=== PATIENT | male | born 1950 | race Caucasian/White ===

== ENCOUNTER 2018-10-15 22:41 | Emergency (ER) | payer MEDICARE ==
[~2018-10-15] VITALS: Ht 182.9 cm; Wt 83.5 kg
[~2018-10-15 22:41] MED LIST: ATENOLOL25 MG PO; ATORVASTATIN CA10 MG PO; BRILINTA90 MG PO; NORCO 7.5-3251 EACH PO; OMEPRAZOLE20 M1 PO
--- OUTSIDE RECORDS SUMMARY | 2018-10-15 22:44 | XMS REPORT ---
Author Author Vanessa Martinez Organization e[employer] Address Unknown Phone Unavailable Care Team Providers Care Thermal Cutter Hand Name Role Phone Vanessa Martinez CP Unavailable Allergies, Adverse Reactions, Alerts Substance Reaction Event Type Morphine Info Not Available Drug Allergy Problems Problem Type Condition Code Onset Dates Condition Status Assessment HTN (hypertension) I10 Active Assessment Angina at rest I20.8 Active Assessment Hypercholesteremia E78.0 Active Problem Angina at rest I20.8 Active Problem HTN (hypertension) I10 Active Problem Chronic GERD K21.9 Active Assessment CAD (coronary artery disease) I25.10 Active Assessment Post PTCA Z98.61 Active Problem Hypercholesteremia E78.0 Active Problem CAD (coronary artery disease) I25.10 Active Assessment Bradycardia R00.1 Active Assessment Chronic GERD K21.9 Active Assessment Other symptoms involving cardiovascular system R09.89 Active Medications Medication Code System Code Instructions Start Date End Date Status Dosage Atenolol ND 38654871699 25 MG Orally BID Active 1 tablet Atorvastatin Calcium ND 70140702479 20 MG Orally Once a day Active 1 tablet Brilinta ND 42686074801 90 MG Orally Twice a day Active 1 tablet Aspirin ND 90841597863 81 MG Orally Once a day Active 1 tablet Pantoprazole Sodium [facility] 55193887405 40 MG Orally Once a day Active 1 tablet Nitroglycerin ND 61623110504 0.4 MG Sublingual as needed May 13, 2016 Active 1 tablet 5 mins. apart, max 3, then call 911 Vital Signs Date/Time: January 12, 2018 BMI 24.27 Index Weight 179 lbs Height 6'0 in Cardiac Monitoring Heart Rate 60 /min Blood Pressure Diastolic 84 mm Hg Blood Pressure Systolic 126 mm Hg Results No Known Results Summary Purpose eClinicalWorks Submission
--- OUTSIDE RECORDS SUMMARY | 2018-10-15 22:44 | XMS REPORT | Continuity of Care Document ---
Author [facility] Interface Address Unknown Phone Unavailable Problems Problem Status Onset Date Classification Date Reported Comments Source CAD Active Diagnosis 08/04/2018 [facility] Angina at rest Active Diagnosis 08/04/2018 [facility] Chronic GERD Active Problem 08/04/2018 [facility] Hypercholesteremia Active Diagnosis 08/04/2018 [facility] HTN Active Diagnosis 08/04/2018 [facility] Other symptoms involving cardiovascular system Active Diagnosis 08/04/2018 [facility] Post PTCA Active Diagnosis 08/04/2018 [facility] Bradycardia Active Diagnosis 08/04/2018 [facility] Medications Medication Details Route Status Patient Instructions Ordering Provider Order Date Source Nitroglycerin 1 tablet 5 mins. apart, max 3, then call 911 Sublingual Active 0.4 MG Sublingual as needed Michelle 05/13/2016 [facility] Nitroglycerin 1 tablet 5 mins. apart, max 3, then call 911 Sublingual Active 0.4 MG Sublingual as needed Michelle 05/13/2016 [facility] Atenolol 1 tablet Orally Active 25 MG Orally BID Michelle [facility] Brilinta 1 tablet Orally Active 90 MG Orally Twice a day Michelle [facility] Atorvastatin Calcium 1 tablet Orally Active 20 MG Orally Once a day Michelle [facility] Pantoprazole Sodium 1 tablet Orally Active 40 MG Orally Once a day Michelle [facility] Aspirin 1 tablet Orally Active 81 MG Orally Once a day Michelle [facility] Livalo 1 tablet Orally Active 2 MG Orally Once a day Michelle [facility] Brilinta 1 tablet Orally Active 90 MG Orally Twice a day Michelle [facility] Atenolol 1 tablet Orally Active 25 MG Orally Once a day Michelle [facility] Atorvastatin Calcium 1 tablet Orally Active 20 MG Orally Once a day Michelle [facility] Aspirin 1 tablet Orally Active 81 MG Orally Once a day Michelle [facility] Pantoprazole Sodium 1 tablet Orally Active 40 MG Orally every other day Michelle [facility] Atorvastatin Calcium 1 tablet Orally Active 20 MG Orally Once a day Michelle [facility] Allergies, Adverse Reactions, Alerts Substance Category Reaction Severity Reaction type Status Date Reported Comments Source N.K.D.A. Adverse Reaction Info Not Available Adverse Reaction Active 04/14/2017 [facility] Morphine Adverse Reaction Info Not Available Adverse Reaction Active 08/02/2018 [facility] Immunizations Immunization Date Given Site Status Last Updated Comments Source Results Order Name Results Value Reference Range Date Interpretation Comments Source Vital Signs Vital Sign Value Date Comments Source Weight 171 08/02/2018 [facility] Heart Rate 60 08/02/2018 [facility] Diastolic (mm Hg) 60 08/02/2018 [facility] Systolic (mm Hg) 110 08/02/2018 [facility] Weight 179 01/12/2018 [facility] Heart Rate 60 01/12/2018 [facility] Diastolic (mm Hg) 84 01/12/2018 [facility] Systolic (mm Hg) 126 01/12/2018 [facility] Weight 180 07/14/2017 [facility] Heart Rate 50 07/14/2017 [facility] Diastolic (mm Hg) 68 07/14/2017 [facility] Systolic (mm Hg) 128 07/14/2017 [facility] Weight 178 04/14/2017 [facility] Heart Rate 50 04/14/2017 [facility] Diastolic (mm Hg) 52 04/14/2017 [facility] Systolic (mm Hg) 138 04/14/2017 [facility] Weight 183 11/13/2016 [facility] Heart Rate 60 11/13/2016 [facility] Diastolic (mm Hg) 62 11/13/2016 [facility] Systolic (mm Hg) 128 11/13/2016 [facility] Weight 184 05/13/2016 [facility] Heart Rate 60 05/13/2016 [facility] Diastolic (mm Hg) 80 05/13/2016 [facility] Systolic (mm Hg) 122 05/13/2016 [facility] Weight 182.2 04/15/2016 [facility] Heart Rate 56 04/15/2016 [facility] Diastolic (mm Hg) 70 04/15/2016 [facility] Systolic (mm Hg) 130 04/15/2016 [facility] Encounters Location Location Details Encounter Type Encounter Number Reason For Visit Attending Provider ADM Date DC Date Status Source Michelle SOLANO NP [id number] 04/15/2016 04/15/2016 [facility] Michelle SOLANO NP [id number] 04/15/2016 04/15/2016 [facility] Michelle SOLANO NP [id number] 04/15/2016 04/15/2016 [facility] Michelle SOLANO NP [id number] 04/15/2016 04/15/2016 [facility] Michelle SOLANO LINING PRINTER [id number] 04/15/2016 04/15/2016 [facility] Michelle SOLANO NP [id number] 04/15/2016 04/15/2016 [facility] Michelle FUENTES [id number] 04/24/2016 04/24/2016 [facility] Michelle NEELYT [id number] 04/24/2016 04/24/2016 [facility] Michelle FUENTES [id number] 04/24/2016 04/24/2016 [facility] Michelle FUENTES [id number] 04/24/2016 04/24/2016 [facility] Michelle NEELYT [id number] 04/24/2016 04/24/2016 [facility] Michelle SOLANO ECHO CD [id number] 05/02/2016 05/02/2016 [facility] Michelle SOLANO ECHO CD [id number] 05/02/2016 05/02/2016 [facility] [place] SOLANO ECHO CD [id number] 05/02/2016 05/02/2016 [facility] Michelle SOLANO ECHO CD [id number] 05/02/2016 05/02/2016 [facility] [place] SOLANO ECHO / CD [id number] 05/13/2016 05/13/2016 [facility] Michelle SOLANO ECHO / CD [id number] 05/13/2016 05/13/2016 [facility] Michelle SOLANO ECHO / CD [id number] 05/13/2016 05/13/2016 [facility] Michelle SOLANO RF brilinta [id number] 09/12/2016 09/12/2016 [facility] Michelle SOLANO RF brilinta [id number] 09/12/2016 09/12/2016 [facility] Michelle SOLANO 6 mo f/u [id number] 11/13/2016 11/13/2016 [facility] Procedures Procedure Code Date Perfomer Comments Source
--- OUTSIDE RECORDS SUMMARY | 2018-10-15 22:44 | XMS REPORT ---
Author Author Vanessa Martinez Organization [employer] Address Unknown Phone Unavailable Care Team Providers Care Regional Extension Service Specialist Name Role Phone Vanessa Martinez CP Unavailable Allergies No Known Allergies Problems Problem Type Condition Code Onset Dates Condition Status Assessment Other symptoms involving cardiovascular system R09.89 Active Assessment Hypercholesteremia E78.0 Active Assessment HTN (hypertension) I10 Active Problem Angina at rest I20.8 Active Problem Hypercholesteremia E78.0 Active Problem CAD (coronary artery disease) I25.10 Active Assessment Post PTCA Z98.61 Active Assessment Angina at rest I20.8 Active Problem HTN (hypertension) I10 Active Assessment CAD (coronary artery disease) I25.10 Active Medications No Known Medications Results No Known Results Summary Purpose eClinicalWorks Submission
--- OUTSIDE RECORDS SUMMARY | 2018-10-15 22:44 | XMS REPORT ---
Author Author Vanessa Martinez Organization [employer] Address Unknown Phone Unavailable Care Team Providers Care Warehousing Technician Name Role Phone Vanessa Martinez CP Unavailable Allergies, Adverse Reactions, Alerts Substance Reaction Event Type Morphine Info Not Available Drug Allergy Problems Problem Type Condition Code Onset Dates Condition Status Assessment HTN (hypertension) I10 Active Assessment Angina at rest I20.8 Active Assessment Hypercholesteremia E78.0 Active Problem CAD (coronary artery disease) I25.10 Active Problem Angina at rest I20.8 Active Problem Chronic GERD K21.9 Active Assessment CAD (coronary artery disease) I25.10 Active Assessment Post PTCA Z98.61 Active Problem Hypercholesteremia E78.0 Active Problem HTN (hypertension) I10 Active Assessment Bradycardia R00.1 Active Assessment Chronic GERD K21.9 Active Assessment Other symptoms involving cardiovascular system R09.89 Active Medications Medication Code System Code Instructions Start Date End Date Status Dosage Atorvastatin Calcium [facility] [address]-60 20 MG Orally Once a day Active 1 tablet Nitroglycerin [facility] [address]-38 0.4 MG Sublingual as needed May 13, 2016 Active 1 tablet 5 mins. apart, max 3, then call 911 Pantoprazole Sodium [facility] [address]-00 40 MG Orally Once a day Active 1 tablet Atenolol [facility] [address]-42 25 MG Orally BID Active 1 tablet Aspirin [facility] [address]-67 81 MG Orally Once a day Active 1 tablet Brilinta [facility] [address]-79 90 MG Orally Twice a day Active 1 tablet Vital Signs Date/Time: Jul 14, 2017 BMI 24.41 Index Weight 180 lbs Height 6'0 in Cardiac Monitoring Heart Rate 50 /min Blood Pressure Diastolic 68 mm Hg Blood Pressure Systolic 128 mm Hg Results No Known Results Summary Purpose eClinicalWorks Submission
--- OUTSIDE RECORDS SUMMARY | 2018-10-15 22:44 | XMS REPORT ---
Author Author Vanessa Martinez Organization [employer] Address Unknown Phone Unavailable Care Team Providers Care Recreation Adviser Name Role Phone Vanessa Martinez CP Unavailable Allergies No Known Allergies Problems Problem Type Condition Code Onset Dates Condition Status Problem Angina at rest I20.8 Active Problem Hypercholesteremia E78.0 Active Problem CAD (coronary artery disease) I25.10 Active Problem HTN (hypertension) I10 Active Medications Medication Code System Code Instructions Start Date End Date Status Dosage Atenolol [facility] [address]-49 25 MG Orally BID Active 1 tablet Results No Known Results Summary Purpose eClinicalWorks Submission
--- OUTSIDE RECORDS SUMMARY | 2018-10-15 22:44 | XMS REPORT ---
Author Author Vanessa Martinez Organization [employer] Address Unknown Phone Unavailable Care Team Providers Care Customer Relationship Specialist Name Role Phone Vanessa Martinez CP Unavailable Allergies No Known Allergies Problems Problem Type Condition Code Onset Dates Condition Status Problem CAD (coronary artery disease) I25.10 Active Problem Angina at rest I20.8 Active Problem Chronic GERD K21.9 Active Problem Hypercholesteremia E78.0 Active Problem HTN (hypertension) I10 Active Medications No Known Medications Results No Known Results Summary Purpose eClinicalWorks Submission
--- OUTSIDE RECORDS SUMMARY | 2018-10-15 22:44 | XMS REPORT ---
Author Author Vanessa Martinez Organization [employer] Address Unknown Phone Unavailable Care Team Providers Care Clip On Sunglasses Assembler Name Role Phone Vanessa Martinez CP Unavailable Allergies No Known Allergies Problems Problem Type Condition Code Onset Dates Condition Status Problem CAD (coronary artery disease) I25.10 Active Problem Angina at rest I20.8 Active Problem Chronic GERD K21.9 Active Problem Hypercholesteremia E78.0 Active Problem HTN (hypertension) I10 Active Medications Medication Code System Code Instructions Start Date End Date Status Dosage Brilinta [facility] [address]-17 90 MG Orally Twice a day Active 1 tablet Results No Known Results Summary Purpose eClinicalWorks Submission
--- OUTSIDE RECORDS SUMMARY | 2018-10-15 22:44 | XMS REPORT ---
Author Author Vanessa Martinez Organization [employer] Address Unknown Phone Unavailable Care Team Providers Care Street Superintendent Name Role Phone Vanessa Martinez CP Unavailable Allergies, Adverse Reactions, Alerts Substance Reaction Event Type N.K.D.A. Info Not Available Non Drug Allergy Problems Problem Type Condition Code Onset Dates Condition Status Assessment HTN (hypertension) I10 Active Assessment Angina at rest I20.8 Active Assessment Hypercholesteremia E78.0 Active Assessment Chronic GERD K21.9 Active Assessment Other symptoms involving cardiovascular system R09.89 Active Problem CAD (coronary artery disease) I25.10 Active Problem Angina at rest I20.8 Active Problem Chronic GERD K21.9 Active Assessment CAD (coronary artery disease) I25.10 Active Assessment Post PTCA Z98.61 Active Problem Hypercholesteremia E78.0 Active Problem HTN (hypertension) I10 Active Medications Medication Code System Code Instructions Start Date End Date Status Dosage Atenolol [facility] [address]-24 25 MG Orally BID Active 1 tablet Aspirin [facility] [address]-74 81 MG Orally Once a day Active 1 tablet Pantoprazole Sodium [facility] [address]-02 40 MG Orally Once a day Active 1 tablet Nitroglycerin [facility] [address]-28 0.4 MG Sublingual as needed May 13, 2016 Active 1 tablet 5 mins. apart, max 3, then call 911 Brilinta [facility] [address]-24 90 MG Orally Twice a day Active 1 tablet Livalo [facility] [address]-89 2 MG Orally Once a day Active 1 tablet Atorvastatin Calcium [facility] [address]-85 20 MG Orally Once a day Active 1 tablet Vital Signs Date/Time: April 14, 2017 BMI 24.14 Index Weight 178 lbs Height 6'0 in Cardiac Monitoring Heart Rate 50 /min Blood Pressure Diastolic 52 mm Hg Blood Pressure Systolic 138 mm Hg Results No Known Results Summary Purpose eClinicalWorks Submission
--- OUTSIDE RECORDS SUMMARY | 2018-10-15 22:44 | XMS REPORT ---
Author Author Vanessa Martinez Organization [employer] Address Unknown Phone Unavailable Care Team Providers Care [place] Hand Name Role Phone Vanessa Martinze CP Unavailable Allergies No Known Allergies Problems Problem Type Condition Code Onset Dates Condition Status Problem CAD (coronary artery disease) I25.10 Active Problem Angina at rest I20.8 Active Problem Chronic GERD K21.9 Active Problem Hypercholesteremia E78.0 Active Problem HTN (hypertension) I10 Active Medications Medication Code System Code Instructions Start Date End Date Status Dosage Brilinta [facility] [address]-06 90 MG Orally Twice a day Active 1 tablet Results No Known Results Summary Purpose eClinicalWorks Submission
--- OUTSIDE RECORDS SUMMARY | 2018-10-15 22:45 | XMS REPORT ---
Author Author Vanessa Martinez Organization [employer] Address Unknown Phone Unavailable Care Team Providers Care Service Aide Name Role Phone Vanessa Martinez CP Unavailable Allergies, Adverse Reactions, Alerts Substance Reaction Event Type N.K.D.A. Info Not Available Non Drug Allergy Encounters Encounter Location Date FLORAL DECORATOR Michelle ESTEVEZ PA April 15, 2016 Problems Problem Type Condition ICD-9 Code Onset Dates Condition Status Assessment Hypercholesteremia E78.0 Active Assessment HTN (hypertension) I10 Active Problem Angina at rest I20.8 Active Problem Hypercholesteremia E78.0 Active Problem CAD (coronary artery disease) I25.10 Active Assessment Post PTCA Z98.61 Active Assessment Angina at rest I20.8 Active Problem HTN (hypertension) I10 Active Assessment CAD (coronary artery disease) I25.10 Active Medications Medication Code System Code Instructions Start Date End Date Status Dosage Atorvastatin Calcium [facility] [address]-05 20 MG Orally Once a day Active 1 tablet Atenolol [facility] [address]-19 25 MG Orally BID Active 1 tablet Aspirin [facility] [address]-07 81 MG Orally Once a day Active 1 tablet Brilinta [facility] [address]-58 90 MG Orally Twice a day Active 1 tablet Social History Social History Element Qualifiers Date Reported Caffeine: . Do you drink caffeine? Yes 2 cups coffee per day, decaf tea 2 glasses per day, occasional soda April 15, 2016 Exercise: . Do you exercise? Yes rides bike, walks, lifts weights April 15, 2016 Smoking: . Are you a: Former smoker, How many packs per day? 1-2 packs, How long have you smoked? 5 years or more April 15, 2016 Alcohol: . Do you drink alcohol? Yes social April 15, 2016 Vital Signs Date/Time: April 15, 2016 Weight 182.2 lbs Cardiac Monitoring Heart Rate 56 /min Blood Pressure Diastolic 70 mm Hg Blood Pressure Systolic 130 mm Hg Summary Purpose eClinicalWorks Submission
--- OUTSIDE RECORDS SUMMARY | 2018-10-15 22:45 | XMS REPORT ---
Author Author Vanessa Martinez Organization [employer] Address Unknown Phone Unavailable Care Team Providers Care Cash Clerk Name Role Phone Vanessa Martinez CP Unavailable Allergies No Known Allergies Problems Problem Type Condition Code Onset Dates Condition Status Problem Angina at rest I20.8 Active Problem HTN (hypertension) I10 Active Problem Chronic GERD K21.9 Active Problem Hypercholesteremia E78.0 Active Problem CAD (coronary artery disease) I25.10 Active Medications No Known Medications Results No Known Results Summary Purpose eClinicalWorks Submission
--- OUTSIDE RECORDS SUMMARY | 2018-10-15 22:45 | XMS REPORT ---
Author Author Vanessa Martinez Organization [employer] Address Unknown Phone Unavailable Care Team Providers Care Coarse Wire Drawer Name Role Phone Vanessa Martinez CP Unavailable [...]
--- OUTSIDE RECORDS SUMMARY | 2018-10-15 22:45 | XMS REPORT ---
Author Author Vanessa Martinez Organization [employer] Address Unknown Phone Unavailable Care Team Providers Care Laborer Car Barn Name Role Phone Vanessa Martinez CP Unavailable Allergies, Adverse Reactions, Alerts Substance Reaction Event Type N.K.D.A. Info Not Available Non Drug Allergy Encounters Encounter Location Date ECHO / CD Michelle ESTEVEZ PA May 13, 2016 RF diandra ESTEVEZ [place] Sep 12, 2016 6 mo f/u Michelle ESTEVEZ PA Nov 13, 2016 QUALITY COMPLIANCE MANAGER Michelle ESTEVEZ PA April 15, 2016 NST Michelle ESTEVEZ PA April 24, 2016 ECHO CD Michelle ESTEVEZ PA May 02, 2016 Problems Problem Type Condition ICD-9 Code Onset Dates Condition Status Assessment Other [...] Date End Date Status Dosage Atorvastatin Calcium [facility] [address]-21 20 MG Orally Once a day Active 1 tablet Atenolol [facility] [address]-58 25 MG Orally BID Active 1 tablet Nitroglycerin [facility] [address]-10 0.4 MG Sublingual as needed May 13, 2016 Active 1 tablet 5 mins. apart, max 3, then call 911 Brilinta [facility] [address]-76 90 MG Orally Twice a day Active 1 tablet Aspirin [facility] [address]-19 81 MG Orally Once a day Active 1 tablet Social History Social History Element Qualifiers Date Reported Caffeine: . Do you drink caffeine? Yes 2 cups coffee per day, decaf tea 2 glasses per day, occasional soda Nov 13, 2016 Exercise: . Do you exercise? Yes rides bike, walks, lifts weights Nov 13, 2016 Smoking: . Are you a: Former smoker, How many packs per day? 1-2 packs, How long have you smoked? 5 years or more Nov 13, 2016 Alcohol: . Do you drink alcohol? Yes social Nov 13, 2016 Vital Signs Date/Time: Nov 13, 2016 Weight 183 lbs Cardiac Monitoring Heart Rate 60 /min Blood Pressure Diastolic 62 mm Hg Blood Pressure Systolic 128 mm Hg Summary Purpose eClinicalWorks Submission
--- OUTSIDE RECORDS SUMMARY | 2018-10-15 22:45 | XMS REPORT ---
Author Author Vanessa Martinez Organization [employer] Address Unknown Phone Unavailable Care Team Providers Care Bologna Lacer Name Role Phone Vanessa Martinez CP Unavailable Allergies No Known Allergies Problems Problem Type Condition Code Onset Dates Condition Status Problem Angina at rest I20.8 Active Problem HTN (hypertension) I10 Active Problem Chronic GERD K21.9 Active Problem Hypercholesteremia E78.0 Active Problem CAD (coronary artery disease) I25.10 Active Medications Medication Code System Code Instructions Start Date End Date Status Dosage Atenolol [facility] 62157762531 25 MG Orally BID Active 1 tablet Results No Known Results Summary Purpose eClinicalWorks Submission
--- OUTSIDE RECORDS SUMMARY | 2018-10-15 22:45 | XMS REPORT ---
Author Author Vanessa Martinez Organization [employer] Address Unknown Phone Unavailable Care Team Providers Care Fisheries Specialist Name Role Phone Vanessa Martinez CP Unavailable Encounters Encounter Location Date ECHO / NAY ESTEVEZ PA May 13, 2016 RF diandra ESTEVEZ PA Sep 12, 2016 LOCATION WORKER Michelle ESTEVEZ PA April 15, 2016 NST Michelle ESTEVEZ PA April 24, 2016 ECHO NAY ESTEVEZ [place] May 02, 2016 Problems Problem Type Condition ICD-9 Code Onset Dates Condition Status Problem Angina at rest I20.8 Active Problem Hypercholesteremia E78.0 Active Problem CAD (coronary artery disease) I25.10 Active Problem HTN (hypertension) I10 Active Medications Medication Code System Code Instructions Start Date End Date Status Dosage Brilinta [facility] [address]-05 90 MG Orally Twice a day Active 1 tablet Social History Social History Element Qualifiers Date Reported Caffeine: . Do you drink caffeine? Yes 2 cups coffee per day, decaf tea 2 glasses per day, occasional soda May 13, 2016 Exercise: . Do you exercise? Yes rides bike, walks, lifts weights May 13, 2016 Smoking: . Are you a: Former smoker, How many packs per day? 1-2 packs, How long have you smoked? 5 years or more May 13, 2016 Alcohol: . Do you drink alcohol? Yes social May 13, 2016 Summary Purpose eClinicalWorks Submission
--- OUTSIDE RECORDS SUMMARY | 2018-10-15 22:45 | XMS REPORT ---
Author Author Vanessa Martinez Organization [employer] Address Unknown Phone Unavailable Care Team Providers Care Visitor Services Associate Name Role Phone Vanessa Martinez CP Unavailable Allergies, Adverse Reactions, Alerts Substance Reaction Event Type N.K.D.A. Info Not Available Non Drug Allergy Encounters Encounter Location Date ECHO / CD Michelle ESTEVEZ PA May 13, 2016 INTEGRATION TECHNICIAN Michelle ESTEVEZ PA April 15, 2016 NST [...] Instructions Start Date End Date Status Dosage Aspirin [facility] [address]-54 81 MG Orally Once a day Active 1 tablet Atorvastatin Calcium [facility] [address]-75 20 MG Orally Once a day Active 1 tablet Atenolol [facility] [address]-88 25 MG Orally BID Active 1 tablet Nitroglycerin [facility] [address]-62 0.4 MG Sublingual as needed May 13, 2016 Active 1 tablet 5 mins. apart, max 3, then call 911 Brilinta [facility] [address]-80 90 MG Orally Twice a day Active [...] drink alcohol? Yes social May 13, 2016 Vital Signs Date/Time: May 13, 2016 Weight 184 lbs Cardiac Monitoring Heart Rate 60 /min Blood Pressure Diastolic 80 mm Hg Blood Pressure Systolic 122 mm Hg Summary Purpose [employer] Submission
--- OUTSIDE RECORDS SUMMARY | 2018-10-15 22:45 | XMS REPORT ---
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 Yes social April 15, 2016 Summary Purpose [employer] Submission
--- OUTSIDE RECORDS SUMMARY | 2018-10-15 22:45 | XMS REPORT ---
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
--- OUTSIDE RECORDS SUMMARY | 2018-10-15 22:45 | XMS REPORT ---
Author Author Vanessa Martinez Organization [employer] Address Unknown Phone Unavailable Care Team Providers Care Wind Operations Manager Name Role Phone Vanessa Martinez CP Unavailable [...] Date End Date Status Dosage Atenolol ND 47278954232 25 MG Orally Once a day Active 1 tablet Atorvastatin Calcium ND 24864097270 20 MG Orally Once a day Active 1 tablet Aspirin ND 02673585314 81 MG Orally Once a day Active 1 tablet Nitroglycerin [facility] 97812423401 0.4 MG Sublingual as needed May 13, 2016 Active 1 tablet 5 mins. apart, max 3, then call 911 Carlta [facility] 48814794999 90 MG Orally Twice a day Active 1 tablet Pantoprazole Sodium ND 55993104782 40 MG Orally every other day Active 1 tablet Vital Signs Date/Time: Aug 02, 2018 BMI 23.19 Index Weight 171 lbs Height 6'0 in Cardiac Monitoring Heart Rate 60 /min Blood Pressure Diastolic 60 mm Hg Blood Pressure Systolic 110 mm Hg Results No Known Results Summary Purpose [employer] Submission
--- OUTSIDE RECORDS SUMMARY | 2018-10-15 22:45 | XMS REPORT ---
Author Author Vanessa Martinez Organization [employer] Address Unknown Phone Unavailable Care Team Providers Care Plant Utility Person Name Role Phone Vanessa Martinez CP Unavailable [...] Start Date End Date Status Dosage Brilinta ND 82576077877 90 MG Orally Twice a day Active 1 tablet Aspirin ND 90465882520 81 MG Orally Once a day Active 1 tablet Atenolol ND 13283376686 25 MG Orally BID Active 1 tablet Atorvastatin Calcium ND 18805051024 20 MG Orally Once a day Active 1 tablet Pantoprazole Sodium [place] 62851418419 40 MG Orally Once a day Active 1 tablet Nitroglycerin [facility] 86451963169 0.4 MG Sublingual as needed May 13, 2016 Active 1 tablet 5 mins. apart, max 3, then call 911 Results No Known Results Summary Purpose [employer] Submission
--- OUTSIDE RECORDS SUMMARY | 2018-10-15 22:45 | XMS REPORT ---
Author Author Vanessa Martinez Organization [employer] Address Unknown Phone Unavailable Care Team Providers Care Emergency Response Coordinator Name Role Phone Vanessa Martinez CP Unavailable Allergies No Known Allergies Problems Problem Type Condition Code Onset Dates Condition Status Problem Angina at rest I20.8 Active Problem HTN (hypertension) I10 Active Problem Chronic GERD K21.9 Active Problem Hypercholesteremia E78.0 Active Problem CAD (coronary artery disease) I25.10 Active Medications Medication Code System Code Instructions Start Date End Date Status Dosage Brilinta [facility] 47306169326 90 MG Orally Twice a day Active 1 tablet Results No Known Results Summary Purpose [employer] Submission
[2018-10-15] MEDS ORDERED: LIDOCAINE 5% PATCH TP SCH (23:15)
[2018-10-16 00:34] LABS: BASOPHILS # (AUTO) 0.1 (0.0-0.1); BASOPHILS % 0.8 % (0.0-1.0); EOSINOPHILS # (AUTO) 0.2 (0.0-0.4); EOSINOPHILS % 3.9 % (0.0-6.0); HEMATOCRIT 43.2 % (38.2-49.6); HEMOGLOBIN 14.6 g/dL (14.0-18.0); LYMPHOCYTES # (AUTO) 1.5 (1.0-3.2); LYMPHOCYTES % 24.8 % (18.0-39.1); MEAN CORPUSCULAR HEMOGLOBIN 31.4 pg (28-32); MEAN CORPUSCULAR HGB CONC 33.8 g/dL (31-35); MEAN CORPUSCULAR VOLUME 92.9 fL (81-99); MONOCYTES # (AUTO) 0.5 (0.2-0.8); NEUTROPHILS # (AUTO) 3.8 (2.1-6.9); NEUTROPHILS % 62.2 % (38.7-80.0); PLATELET COUNT 199 x10e3/uL (140-360); RED BLOOD COUNT 4.65 x10e6/uL (4.3-5.7); RED CELL DISTRIBUTION WIDTH 13.3 % (11.7-14.4)
[2018-10-16 00:40] LABS: INR 0.84; PROTHROMBIN TIME 12.3 seconds (11.9-14.5)
[2018-10-16 00:41] LABS: PARTIAL THROMBOPLASTIN TIME 27.1 seconds (23.8-35.5)
[2018-10-16 00:52] LABS: ALANINE AMINOTRANSFERASE 44 IU/L (0-55); ALBUMIN 4.2 g/dL (3.5-5.0); ALBUMIN/GLOBULIN RATIO 1.4 (0.8-2.0); ALKALINE PHOSPHATASE 53 IU/L (40-150); BLOOD UREA NITROGEN 18 mg/dL (7-26); BUN/CREATININE RATIO 16 (6-25); CALCIUM 9.3 mg/dL (8.4-10.2); CARBON DIOXIDE 25 mmol/L (22-29); CREATINE KINASE 144 IU/L (30-200); EST GLOMERULAR FILTRATION RATE > 60 ML/MIN (60-); GLUCOSE 125 mg/dL (74-118)
--- NOTE | 2018-10-16 01:02 | Diagnostic Imaging Report ---
CHEST 2 VIEWS, Technique: CHEST 2 VIEWS Comparison: None Clinical history: Chest pain, left arm pain DISCUSSION: Coronary stent. Otherwise unremarkable appearance of the heart, mediastinum, lungs and pleural spaces. IMPRESSION: No acute abnormality Signed by: Dr Michela Rivera MD on 10/15/2018 11:57 PM
[2018-10-16 01:19] LABS: ANION GAP 15.7 mmol/L (8-16); CHLORIDE 106 mmol/L (98-107); POTASSIUM 3.7 mmol/L (3.5-5.1); SODIUM 143 mmol/L (136-145)
== END 2018-10-16 02:13 | disposition home or self-care (01) ==
LOC: ER 22:41
DX: R07.89 Other chest pain (principal); M79.622 Pain in left upper arm; I25.10 Atherosclerotic heart disease of native coronary artery without angina pectoris; Z88.5 Allergy status to narcotic agent
CPT/HCPCS: 36415; 71046; 80053; 82550; 82553; 84484; 85025; 85610; 85730; 93005; 99284

== ENCOUNTER 2020-04-29 12:37 | Emergency (ER) | payer MEDICARE, OTHER ==
[~2020-04-29] VITALS: Ht 180.3 cm; Wt 81.6 kg
--- NOTE | 2020-04-29 12:49 | Emergency Department Note ---
History of Present Illnes History of Present Illness Chief Complaint: Head/Face Trauma History of Present Illness This is a 70 year old male, with a history of ASCVD status post stent placement 5, hypertension, and hyperlipidemia, who presents for evaluation of a head injury that occurred approximately 16 hours ago. Patient was apparently diving into a pool, and went too deep, scraping the upper forehead on the bottom of the pool. Patient no loss of consciousness, and he has had no headache, nausea, vomiting, dizziness, neck pain, numbness, tingling, or focal weakness. Patient's family and friends encouraged him to come and get his head injury checked out today. He is asymptomatic. Patient does take Plavix daily, due to stent placement. Arrival Mode: Car Environmental Engineering Professor Required: No Onset (how long ago): hour(s) (16) Location: superior aspect of forehead Quality: no pain Radiation: Reports non-radiation Severity: mild Onset quality: sudden Duration (how long): hour(s) (16) Timing of current episode: rare Progression: other (no pain or symptoms, see HPI) Context: Reports trauma/injury (see HPI); Denies recent illness Relieving factors: none Exacerbating factors: none Associated symptoms: Reports denies other symptoms; Denies confusion, Denies fever/chills, Denies headaches, Denies nausea/vomiting, Denies shortness of breath, Denies weakness Treatments prior to arrival: none Risk factors: Takes Plavix daily Past Medical/Family History Physician Review I have reviewed the patient's past medical and family history. Any updates have been documented here. Past Medical History Recent Fever: No Clinical Suspicion of Infectio: No New/Unexplained Change in Ment: No Past Medical History: Hypertension, CAD (s/p stent placement x 4;), Cancer, Hyperlipedemia Other Medical History: SKIN CANCER Past Surgical History: Cholecysctectomy, Appendectomy, T&A, Cataract Removal (Right) Other Surgery: CARDIAC STENTS CERVICAL FUSION LEFT FOOT FRACTURE Social History Smoking Cessation: Former smoker Counseling Performed: No Alcohol Use: Occasional Any Illegal Drug Use: No TB Exposure/Symptoms: No Physically hurt or threatened: No Family History Family history of heart diseas: No Other Last Tetanus: UNKNOWN Any Pre-Existing Lines (PICC,: No Is patient up to date on immun: No Review of Systems Review of Systems Constitutional: Denies chills, Denies fever EENTM: Reports no symptoms Cardiovascular: Denies chest pain, Denies palpitations Respiratory: Denies cough Gastrointestinal: Reports no symptoms Musculoskeletal: Denies muscle pain, Denies muscle stiffness, Denies neck pain Neurological: Denies headache, Denies numbness, Denies paresthesia, Denies seizure, Denies tingling, Denies weakness Psychological: Denies anxiety, Denies depressed Review of other systems: All other systems negative Physical Exam Related Data Allergies: Coded Allergies: morphine (Verified Allergy, Mild, HYPER, 10/15/18) Vital signs reviewed: Yes Physical Exam CONSTITUTIONAL Constitutional: Present well-developed, Present well-nourished; Absent ill appearing HENT HENT: Present normocephalic, Present oropharynx clear/moist, Present nose normal, Present other (large abrasion on the upper forehead, with no active bleeding.); Absent oropharyngeal exudate, Absent pharynx abnormal HENT L/R: Present left ext ear normal, Present right ext ear normal EYES Eyes: Reports PERRL, Reports conjunctivae normal NECK Neck: Present ROM normal, Present supple PULMONARY Pulmonary: Present effort normal, Present breath sounds normal CARDIOVASCULAR Cardiovascular: Present regular rhythm, Present heart sounds normal, Present ca pillary refill normal, Present normal rate GASTROINTESTINAL Abdominal: Present nontender GENITOURINARY Genitourinary: Present exam deferred SKIN Skin: Present warm MUSCULOSKELETAL Musculoskeletal: Present ROM normal NEUROLOGICAL Neurological: Present alert, Present oriented x 3, Present no gross motor or sensory deficits; Absent cranial nerve deficit, Absent abnormal gait, Absent weakness PSYCHOLOGICAL Psychological: Present mood/affect normal, Present judgement normal Results Imaging Imaging results reviewed: Yes Impressions [place] [address] Patient Name: KHUSHI ERICKSON I MR #: [id number] : 1950 Age/Sex: 70/M Req #: [id number] Adm Physician: Ordered by: RAND LANTIGUA MD Report #: [id number] [facility] Room/Bed: Procedure: [id number] HOPD/CT BRAIN [facility] Exam Date: 04/29/20 Exam Time: 1325 REPORT STATUS: Signed History: Fall Comparison studies: None Technique: Axial images were obtained from the skull base to the vertex. Coronal and sagittal reconstructions obtained from the axial data. Dose modulation, iterative reconstruction, and/or weight based adjustment of the mA/kV was utilized to reduce the radiation dose to as low as reasonably achievable. Intravenous contrast: None Findings: Scalp/skull: An acute midline frontal scalp hematoma is not associated with subcutaneous emphysema or with hyperdense foreign bodies. No underlying fractures. Extra-axial spaces: No masses. No fluid collections. Brain sulci: Appropriate for age. Ventricles: Normal in size and configuration. No hydrocephalus. Parenchyma: Cortical encephalomalacic changes in the left gyrus rectus are the result of previous trauma (series 401, image 19). No additional abnormal densities. No masses, hemorrhage, acute or additional chronic cortical vascular insults. Sellar/suprasellar region: No abnormalities Craniocervical junction: Patent foramen magnum. No Chiari one malformation. Incidental findings: None. IMPRESSION: 1. No acute intracranial abnormalities. 2. 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 Signed by: Dr. Hola Guadalupe M.D. on 04/29/2020 2:28 PM Dictated By: HOLA GUADALUPE MD, MD 1425 Transcribed By: CONSUELO on 04/29/20 1428 COPY TO: RAND LANTIGUA MD~ Assessment & Plan Medical Decision Making MDM - Return to the ER, if you develop a severe headache, vomiting 2 or more times, neck pain or stiffness, visual changes, focal weakness, or unsteady gait. - Clean the abrasion on the forehead twice daily with antibacterial soap and water, pat dry, and then apply over the counter antibiotic ointment twice daily such as Neosporin, bacitracin, or Triple antibiotic ointment. Follow up with your primary care provider if you notice any redness, drainage, or increased pain at the site of the forehead abrasion. Assessment & Plan Final Impression: (1) Closed head injury (2) Swimming/diving acc NEC (3) Abrasion of forehead (4) Hypertension (5) History of ASCVD Depart Disposition: HOME, SELF-custodial Meds Reported Medications Hydrocodone Bit/Acetaminophen (NORCO 7.5-325 TABLET) 1 Each Tablet, 1 EA PO PRN, TAB 08/01/16 Atorvastatin Calcium (ATORVASTATIN CALCIUM) 10 Mg Tablet, 10 MG PO DAILY, #30 TAB 07/30/16 Ticagrelor (BRILINTA) 90 Mg Tablet, 90 MG PO BID 07/30/16 Atenolol (ATENOLOL) 25 Mg Tablet, 25 MG PO BID 09/26/15 RAND LANTIGUA MD Apr 29, 2020 12:49
[2020-04-29] MEDS ORDERED: NEOMYCIN/POLYMYX/BACITR OINT 0.9 GM PKT ONE (13:22)
--- NOTE | 2020-04-29 14:31 | Diagnostic Imaging Report ---
History: Fall Comparison studies: None Technique: Axial images were obtained from the skull base to the vertex. Coronal and sagittal reconstructions obtained from the axial data. Dose modulation, iterative reconstruction, and/or weight based adjustment of the mA/kV was utilized to reduce the radiation dose to as low as reasonably achievable. Intravenous contrast: None Findings: Scalp/skull: An acute midline frontal scalp hematoma is not associated with subcutaneous emphysema or with hyperdense foreign bodies. No underlying fractures. Extra-axial spaces: No masses. No fluid collections. Brain sulci: Appropriate for age. Ventricles: Normal in size and configuration. No hydrocephalus. Parenchyma: Cortical encephalomalacic changes in the left gyrus rectus are the result of previous trauma (series 401, image 19). No additional abnormal densities. No masses, hemorrhage, acute or additional chronic cortical vascular insults. Sellar/suprasellar region: No abnormalities Craniocervical junction: Patent foramen magnum. No Chiari one malformation. Incidental findings: None. IMPRESSION: 1. No acute intracranial abnormalities. 2. 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 Signed by: Dr. Hola Guadalupe M.D. on 04/29/2020 2:28 PM
[2020-04-30] MEDS ORDERED: BACITRACIN ZINC 15 GM OINT TOP SCH (09:00)
== END 2020-04-29 14:56 | disposition home or self-care (01) ==
LOC: FSED 13:33
DX: S00.83XA Contusion of other part of head, initial encounter (principal); W16.022A Fall into swimming pool striking bottom causing other injury, initial encounter; Y93.11 Activity, swimming; Y92.007 Garden or yard of unspecified non-institutional (private) residence as the place of occurrence of the external cause; I10 Essential (primary) hypertension; I25.10 Atherosclerotic heart disease of native coronary artery without angina pectoris
CPT/HCPCS: 70450; 99283

== ENCOUNTER 2021-03-07 09:21 | Emergency (ER) | payer MEDICARE, OTHER ==
[~2021-03-07] VITALS: Ht 175.3 cm; Wt 80.0 kg
[2021-03-07] MEDS ORDERED: PLAVIX75 MG PO (09:35)
[2021-03-07] MEDS ORDERED: GUAIFENESIN600 M1 PO (10:01)
[2021-03-07] MEDS ORDERED: VENTOLIN HFA18 GM INH (10:01)
[2021-03-07] MEDS ORDERED: PREDNISONE20 MG PO (10:01)
[2021-03-07 10:34] VITALS: BP 145/71
== END 2021-03-07 10:30 | disposition home or self-care (01) ==
LOC: FSED 09:38
DX: R05 Cough (principal); R50.9 Fever, unspecified; J40 Bronchitis, not specified as acute or chronic; R51.9 Headache, unspecified; I10 Essential (primary) hypertension; E78.5 Hyperlipidemia, unspecified; I25.10 Atherosclerotic heart disease of native coronary artery without angina pectoris; Z85.828 Personal history of other malignant neoplasm of skin; Z95.5 Presence of coronary angioplasty implant and graft
CPT/HCPCS: 71046; 83518; 87400; 93005; 99283

== ENCOUNTER 2021-12-06 04:59 | Emergency (ER) | payer MEDICARE, OTHER ==
[~2021-12-06] VITALS: Ht 180.3 cm; Wt 79.4 kg
[~2021-12-06 04:59] MED LIST changes: +GUAIFENESIN600 M1 PO; +PLAVIX75 MG PO; +PREDNISONE20 MG PO; +VENTOLIN HFA18 GM INH
[2021-12-06 06:09] VITALS: BP 171/79
== END 2021-12-06 06:09 | disposition home or self-care (01) ==
LOC: FSED 05:24
DX: S00.83XA Contusion of other part of head, initial encounter (principal); W01.0XXA Fall on same level from slipping, tripping and stumbling without subsequent striking against object, initial encounter; Y93.01 Activity, walking, marching and hiking; Y92.007 Garden or yard of unspecified non-institutional (private) residence as the place of occurrence of the external cause; I10 Essential (primary) hypertension; E78.5 Hyperlipidemia, unspecified; Z85.828 Personal history of other malignant neoplasm of skin; Z95.5 Presence of coronary angioplasty implant and graft
CPT/HCPCS: 70450; 99283

== ENCOUNTER 2024-01-04 12:59 | Emergency (ER) | payer MEDICARE, OTHER ==
[~2024-01-04] VITALS: Ht 180.3 cm; Wt 74.8 kg
[~2024-01-04 12:59] MED LIST changes: +CEPHALEXIN500 MG PO
[2024-01-04 13:11] VITALS: O2SAT 97
[2024-01-04] MEDS ORDERED: AMOXICILLIN875 MG PO (13:29)
[2024-01-04] MEDS ORDERED: NASONEX 24HR AL17 ML (13:30)
== END 2024-01-04 13:36 | disposition home or self-care (01) ==
LOC: FSED 13:12
DX: J32.9 Chronic sinusitis, unspecified (principal); R09.81 Nasal congestion; I10 Essential (primary) hypertension; E78.5 Hyperlipidemia, unspecified; I25.10 Atherosclerotic heart disease of native coronary artery without angina pectoris; M43.22 Fusion of spine, cervical region; Z95.5 Presence of coronary angioplasty implant and graft; Z85.828 Personal history of other malignant neoplasm of skin
CPT/HCPCS: 99282

== ENCOUNTER 2024-03-06 19:09 | Emergency (ER) | payer MEDICARE, OTHER ==
[~2024-03-06] VITALS: Ht 180.3 cm; Wt 74.8 kg
[~2024-03-06 19:09] MED LIST changes: +AMOXICILLIN875 MG PO; +NASONEX 24HR AL17 ML
[2024-03-06] MEDS: ASPIRIN 325 MG TAB PO STA (19:29)
[2024-03-06] MEDS ORDERED: ASPIRIN 325 MG TAB ONE (19:32)
[2024-03-06 22:50] VITALS: O2SAT 97
== END 2024-03-06 23:00 | disposition home or self-care (01) ==
LOC: FSED 19:20
DX: R07.9 Chest pain, unspecified (principal); I10 Essential (primary) hypertension; I25.10 Atherosclerotic heart disease of native coronary artery without angina pectoris; E78.5 Hyperlipidemia, unspecified; M43.22 Fusion of spine, cervical region; Z85.828 Personal history of other malignant neoplasm of skin; Z95.5 Presence of coronary angioplasty implant and graft
CPT/HCPCS: 71045; 80053; 84484; 85025; 93005; 99284

== ENCOUNTER 2025-04-18 03:46 | Emergency (ER) | payer MEDICARE, OTHER ==
[~2025-04-18] VITALS: Ht 180.3 cm; Wt 76.7 kg
[2025-04-18 03:50] VITALS: PULSE 54; RESP 15; TEMP 97.7
[2025-04-18 04:21] VITALS: BP 159/75; PULSE 54; RESP 15; TEMP 97.7; O2SAT 97
== END 2025-04-18 04:22 | disposition home or self-care (01) ==
LOC: FSED 03:54
DX: Z48.01 Encounter for change or removal of surgical wound dressing (principal); M79.652 Pain in left thigh; E78.5 Hyperlipidemia, unspecified; Z85.828 Personal history of other malignant neoplasm of skin
CPT/HCPCS: 99283